=== PATIENT | female | born 1985 | race Caucasian/White ===

== ENCOUNTER 2019-02-24 04:13 | Emergency (ER) | payer MEDICARE, MEDICAID ==
[~2019-02-24] VITALS: Ht 170.2 cm; Wt 86.2 kg
--- NOTE | 2019-02-24 04:27 | ED Headache ---
General Chief Complaint: Head/Cervical Problems Stated Complaint: MIGRAINE Source: patient Exam Limitations: no limitations History of Present Illness Date Seen by Provider: Feb 24, 2019 Time Seen by Provider: 04:24 Initial Comments 33-year-old female presents with a migraine. Patient reports she has a history of migraines. She reports that she's been out of migraine for about a week. Patient is tried some Excedrin headache medication. Patient reports she's rec ently moved here and has no other migraine medication. Denies any fevers chills. Patient has some mild nausea. No other systemic complaints. Allergies and Home Medications Allergies Coded Allergies: divalproex sodium (Verified Allergy, Unknown, 02/24/19) fluoxetine (Verified Allergy, Unknown, 02/24/19) gabapentin (Verified Allergy, Unknown, 02/24/19) quetiapine (Verified Allergy, Unknown, 02/24/19) Patient Home Medication List Home Medication List Reviewed: Yes Review of Systems Review of Systems Constitutional: No chills, No fever Eyes: Denies Blurred Vision Ears, Nose, Mouth, Throat: no symptoms reported Respiratory: No cough, No short of breath Cardiovascular: No chest pain, No palpitations Gastrointestinal: nausea; No vomiting Genitourinary: no symptoms reported Skin: no symptoms reported Psychiatric/Neurological: No Symptoms Reported Past Jtrevjn-Skwymb-Xgrbxb Hx Past Med/Social Hx: Reviewed Nursing Past Med/Soc Hx Patient Social History Recent Foreign Travel: No Contact w/Someone Who Travel: No Physical Exam Vital Signs Capillary Refill : Height, Weight, BMI Height: '" Weight: lbs. oz. kg; BMI Method: General Appearance: WD/WN, no apparent distress HEENT: PERRL/EOMI Neck: non-tender, full range of motion, supple Cardiovascular: regular rate, rhythm, no edema Respiratory: normal breath sounds, no respiratory distress Gastrointestinal: non tender, soft Extremities: other (right lower extremity in a splint) Psychiatric: alert, oriented x 3 Crainal Nerves: normal speech, PERRL Skin: normal color, warm/dry Progress/Results/Core Measures Results/Orders My Orders Orders - WESLY WU DO Ketorolac Injection (Toradol Injection) (02/24/19 04:28) Diphenhydramine Injection (Benadryl Inje (02/24/19 04:28) Metoclopramide Injection (Reglan Injecti (02/24/19 04:28) Departure Impression Primary Impression: Migraine Qualified Codes: G43.909 - Migraine, unspecified, not intractable, without status migrainosus Disposition: 01 HOME, SELF-CARE Condition: Stable Departure-Patient Inst. Referrals: NO,LOCAL PHYSICIAN (PCP/Family) Primary Care Physician Patient Instructions: Migraine Headache (DC), Headache, Adult (DC) WESLY WU DO Feb 24, 2019 04:27
[2019-02-24] MEDS ORDERED: KETOROLAC 60 MG/2 ML VIAL IM STA (04:28)
[2019-02-24] MEDS ORDERED: diphenhydrAMINE 50 MG/ML INJ (BENADRYL) IM STA (04:28)
[2019-02-24] MEDS ORDERED: METOCLOPRAMIDE INJ 10 MG/2 ML (REGLAN) IM STA (04:28)
[2019-02-24 04:45] VITALS: BP 171/88
== END 2019-02-24 04:44 | disposition home or self-care (01) ==
LOC: ER FS 04:17
DX: G43.909 Migraine, unspecified, not intractable, without status migrainosus (principal); Z88.8 Allergy status to other drugs, medicaments and biological substances
CPT/HCPCS: 96372; 99284

== ENCOUNTER 2019-05-13 18:32 | Emergency (ER) | payer MEDICARE, MEDICAID ==
[~2019-05-13] VITALS: Ht 170 cm; Wt 95.3 kg
[2019-05-13] MEDS ORDERED: KETOROLAC 30 MG/ML VIAL IVP STA (18:47)
[2019-05-13] MEDS ORDERED: METOCLOPRAMIDE INJ 10 MG/2 ML (REGLAN) IVP STA (18:47)
[2019-05-13] MEDS ORDERED: ORPHENADRINE 60 MG/2 ML (NORFLEX) AMP IV STA (18:47)
[2019-05-13] MEDS ORDERED: NS IV 1000 ML 1,000 ML IV SCH (18:47)
--- NOTE | 2019-05-13 18:47 | ED Headache ---
General Chief Complaint: Head/Cervical Problems Stated Complaint: MIGRAINE Source: patient History of Present Illness Date Seen by Provider: May 13, 2019 Time Seen by Provider: 18:38 Initial Comments 33-year-old female presents with a headache. Patient reports that she's had a migraine for 4 days. It similar to her previous migraines that she's been having since she was 14. Her migraine is in her left eye and her left posterior neck. She has photophobia with noise her make it worse. She has some nausea but no other systemic complaints such as fever, chills. Allergies and Home Medications Allergies Coded Allergies: divalproex sodium (Verified Allergy, Unknown, 02/24/19) fluoxetine (Verified Allergy, Unknown, 02/24/19) gabapentin (Verified Allergy, Unknown, 02/24/19) quetiapine (Verified Allergy, Unknown, 02/24/19) Patient Home Medication List Home Medication List Reviewed: Yes Review of Systems Review of Systems Constitutional: No chills, No fever Eyes: Photophobia; Denies Vision Changes Ears, Nose, Mouth, Throat: denies ear pain, denies ear discharge Respiratory: No cough, No short of breath Cardiovascular: No chest pain, No palpitations Gastrointestinal: No nausea, No vomiting Genitourinary: no symptoms reported Musculoskeletal: No back pain, No joint swelling, No muscle weakness Skin: no symptoms reported Past Zvwpszy-Yuaqhj-Dkrkai Hx Past Med/Social Hx: Reviewed Nursing Past Med/Soc Hx Patient Social History Type Used: Cigarettes 2nd Hand Smoke Exposure: No Recent Foreign Travel: No Contact w/Someone Who Travel: No Recent Hopitalizations: No Seasonal Allergies Seasonal Allergies: No Physical Exam Vital Signs Vital Signs - First Documented 05/13/19 05/13/19 18:36 19:57 Temp 36.9 Pulse 106 Resp 16 B/P (MAP) 129/86 (100) Pulse Ox 99 O2 Delivery Room Air Capillary Refill : Height, Weight, BMI Height: 5'7.00" Weight: 190lbs. oz. 86.643310ac; BMI Method:Stated General Appearance: no apparent distress HEENT: PERRL/EOMI Neck: supple, tender lateral (left lateral) Cardiovascular: normal peripheral pulses, regular rate, rhythm Respiratory: chest non-tender, lungs clear, normal breath sounds Gastrointestinal: non tender, soft Back: no CVA tenderness Extremities: non-tender Psychiatric: alert, oriented x 3 Crainal Nerves: normal hearing, normal speech Coordination/Gait: normal gait Motor/Sensory: no motor deficit, no sensory deficit Skin: normal color, warm/dry Progress/Results/Core Measures Results/Orders My Orders Orders - WESLY WU DO Ed Iv/Invasive Line Start (05/13/19 18:47) Ns Iv 1000 Ml (Sodium Chloride 0.9%) (05/13/19 18:47) Ketorolac Injection (Toradol Injection) (05/13/19 18:47) Orphenadrine Injection (Norflex Injectio (05/13/19 18:47) Metoclopramide Injection (Reglan Injecti (05/13/19 18:47) Methylprednisolone Sod Succ (Solu-Medrol (05/13/19 19:00) Medications Given in ED Current Medications Medications Dose Ordered Sig/Arabella Route Start Time Stop Time Status Last Admin Dose Admin Methylprednisolone Sodium Succinate 80 mg ONCE ONCE IV 05/13/19 19:00 05/13/19 19:01 DC 05/13/19 19:01 80 MG Vital Signs/I&O 05/13/19 05/13/19 18:36 19:57 Temp 36.9 Pulse 106 80 Resp 16 16 B/P (MAP) 129/86 (100) 115/70 Pulse Ox 99 95 O2 Delivery Room Air Progress Progress Note : Time: 19:32 Progress Note Patient feeling seemingly better following treatment. She will be discharged home in stable condition Departure Impression Primary Impression: Migraine Qualified Codes: G43.919 - Migraine, unspecified, intractable, without status migrainosus Disposition: HOME, SELF-CARE Condition: Stable Departure-Patient Inst. Referrals: NO,LOCAL PHYSICIAN (PCP/Family) Primary Care Physician Patient Instructions: Migraine Headache (DC), Headache, Adult (DC) WESLY WU DO May 13, 2019 18:47 POS
[2019-05-13] MEDS ORDERED: methylPREDNISolone 40 MG/ML (Solu-MEDROL) VIAL IV ONE (19:00)
[2019-05-13 19:57] VITALS: BP 115/70
== END 2019-05-13 19:57 | disposition home or self-care (01) ==
LOC: EDUNIT# 18:32 → ER FS 18:34
DX: G43.909 Migraine, unspecified, not intractable, without status migrainosus (principal); Z88.8 Allergy status to other drugs, medicaments and biological substances
CPT/HCPCS: 96361; 96374; 96375

== ENCOUNTER 2019-06-16 14:53 | Emergency (ER) | payer MEDICARE, MEDICAID ==
[~2019-06-16] VITALS: Ht 170 cm; Wt 97.6 kg
[2019-06-16] MEDS ORDERED: NS IV 1000 ML 1,000 ML IV SCH (15:06)
--- NOTE | 2019-06-16 15:14 | ED Headache ---
General Chief Complaint: Head/Cervical Problems Stated Complaint: HEADACHE History of Present Illness Date Seen by Provider: Jun 16, 2019 Time Seen by Provider: 14:50 Initial Comments The patient is a 33-year-old female with a history of chronic migraine headaches on ibuprofen and Fioricet as needed at home, as well as tobacco abuse. She presents with concern for gradual onset right-sided frontal headache with radiation to the occiput with onset about 6 days prior to arrival and worsening gradually since then. Severity about 9 out of 10 at present per patient. Associated photophobia and phonophobia. Patient states symptoms, including laterality and character, feel exactly like prior migraine headaches which she has quite frequently, at least once a month. No associated fevers, vomiting, focal weakness, numbness, tingling, neck stiffness/pain/meningismus, vision changes, shortness of breath or chest pain, history of recent head trauma. Patient has tried her home medicines without complete relief of symptoms. She states the only thing different about this headache is that it has lasted a little longer than usual. Allergies and Home Medications Allergies Coded Allergies: divalproex sodium (Verified Allergy, Unknown, 02/24/19) fluoxetine (Verified Allergy, Unknown, 02/24/19) gabapentin (Verified Allergy, Unknown, 02/24/19) quetiapine (Verified Allergy, Unknown, 02/24/19) Patient Home Medication List Home Medication List Reviewed: Yes Review of Systems Review of Systems Constitutional: see HPI All Other Systems Reviewed Negative Unless Noted: Yes (Negative excepted noted.) Past Wmrrzad-Lbxpvo-Aoucjk Hx Past Med/Social Hx: Reviewed Nursing Past Med/Soc Hx Patient Social History Alcohol Use: Denies Use Recreational Drug Use: No Smoking Status: Current Everyday Smoker Type Used: Cigarettes 2nd Hand Smoke Exposure: Yes Recent Hopitalizations: No Physical Abuse: No Sexual Abuse: No Mistreated: No Fear: No Seasonal Allergies Seasonal Allergies: No Past Medical History Surgeries: Yes Section, Gallbladder Respiratory: No Cardiac: No Neurological: Yes Headaches /Migraines Genitourinary: No Gastrointestinal: No Musculoskeletal: No Endocrine: Yes Hypothyroidsim HEENT: No Cancer: No Psychosocial: No Integumentary: No Family Medical History Reviewed Nursing Family Hx Physical Exam Vital Signs Vital Signs - First Documented 06/16/19 15:02 Temp 36.7 Pulse 96 Resp 16 B/P (MAP) 142/86 (104) Pulse Ox 99 Capillary Refill : Height, Weight, BMI Height: 5'7.00" Weight: 190lbs. oz. 86.894389ir; 32.00 BMI Method:Stated General Appearance: no apparent distress Comments This is a younger female appearing nontoxic and in no acute distress. Head is normocephalic and atraumatic. Neck is supple and nontender and there is no meningismus/rigidity appreciated and the patient is able to range her neck fully in all dimensions without discomfort. Oropharynx is moist. Lungs clear to auscultation at all stations. There is a normal S1 and S2 without rubs or gallops and capillary refill is appropriate, less than 2 seconds globally. Abdomen is soft, nontender and nondistended. Skin is warm and dry without cyanosis, clubbing or edema. Psychiatrically, the patient demonstrates appropriate mood and affect and is alert. Neurologically, cranial nerves II through XII are intact and there are no lateralizing deficits noted. Speech is normal. Language is normal. Coordination is normal. There is no dysmetria with smglue-hl-fsgb bilaterally. Strength is 5 out of 5 in all joints of bilateral upper and lower extremity. Sensation is intact to light touch in bilateral upper and lower extremities. The patient ambulates with a narrow, steady gait in the e mergency department. She is alert and oriented 4. Progress/Results/Core Measures Results/Orders My Orders Orders - YUDITH LEE MD Prochlorperazine Injection (Compazine In (06/16/19 15:15) Diphenhydramine Injection (Benadryl Inje (06/16/19 15:15) Ketorolac Injection (Toradol Injection) (06/16/19 15:15) Sumatriptan Injection (Imitrex Injection (06/16/19 15:15) Ed Iv/Invasive Line Start (06/16/19 15:06) Ns Iv 1000 Ml (Sodium Chloride 0.9%) (06/16/19 15:06) Magnesium 1 Gm/100 Ml Ivpb (Magnesium Valle (06/16/19 15:56) Magnesium 1 Gm/100 Ml Ivpb (Magnesium Valle (06/16/19 16:15) Medications Given in ED Current Medications Medications Dose Ordered Sig/Arabella Route Start Time Stop Time Status Last Admin Dose Admin Diphenhydramine HCl 25 mg ONCE ONCE IVP 06/16/19 15:15 06/16/19 15:16 DC 06/16/19 15:14 25 MG Ketorolac Tromethamine 30 mg ONCE ONCE IVP 06/16/19 15:15 06/16/19 15:16 DC 06/16/19 15:14 30 MG Prochlorperazine Edisylate 10 mg ONCE ONCE IV 06/16/19 15:15 06/16/19 15:16 DC 06/16/19 15:14 10 MG Sumatriptan Succinate 6 mg ONCE ONCE SQ 06/16/19 15:15 06/16/19 15:16 DC 06/16/19 15:18 6 MG Vital Signs/I&O 06/16/19 15:02 Temp 36.7 Pulse 96 Resp 16 B/P (MAP) 142/86 (104) Pulse Ox 99 Progress Progress Note : Time: 15:13 Progress Note Vital signs and clinical examination reassuring and neurologic examination is nonfocal today. 33-year-old female with gradual onset right-sided headache with associated photophobia and phonophobia, consistent with her frequent migraine headaches, but has lasted longer than usual. No red flags for headache today. We'll treat symptomatically as per nursing flow sheet with medications and IV fluids and will then reevaluate. If the patient feels better, plan will be for discharge home to follow up very closely with primary care in the next 1-2 days. I have also counseled the patient that she may benefit from a referral to neurology for further evaluation and treatment of her chronic headaches. She understands and agrees. Update 1700: Headache essentially resolved upon reassessment. Patient feels much, much better and would like to go home. We will proceed with discharge home at this time. We'll prescribe some Imitrex which the patient may try for discomfort not controlled with home ibuprofen or her other medications. She is to follow-up with primary care as above in the next 1-2 days and to return to the emergency department right away if symptoms worsen or if other new symptoms of concern develop. All questions are answered. Departure Impression Primary Impression: Headache Qualified Codes: G44.89 - Other headache syndrome Disposition: 01 HOME, SELF-CARE Condition: Improved Departure-Patient Inst. Referrals: NO,LOCAL PHYSICIAN (PCP) Primary Care Physician Patient Instructions: Headache, Adult (DC) Add. Discharge Instructions: Follow up very closely with your primary care physician in the next 1-2 days. We are prescribing some medication you may try for recurrent headache not responsive to your typical ibuprofen at home. Use as instructed. Follow up very closely with your primary care physician in the next 1-2 days. Given your difficulty with frequent migraine headaches, you may also benefit from a referral to the neurologist. Make sure to discuss this with your primary care physician at your close follow-up appointment. Return to the emergency department right away with worsened symptoms or other new concerns. Scripts Sumatriptan Succinate (Imitrex) 50 Mg Tab 50 MG PO Q2H PRN for headache MDD 100mg, #10 TAB Prov: YUDITH LEE MD 06/16/19 YUDITH LEE MD Jun 16, 2019 15:14
[2019-06-16] MEDS ORDERED: KETOROLAC 30 MG/ML VIAL IVP ONE (15:15)
[2019-06-16] MEDS ORDERED: diphenhydrAMINE 50 MG/ML INJ (BENADRYL) IVP ONE (15:15)
[2019-06-16] MEDS ORDERED: SUMAtriptan 6 MG/0.5 ML (IMITREX) INJ SQ ONE (15:15)
[2019-06-16] MEDS ORDERED: PROCHLORPERAZINE 10 MG/2ML INJ (COMPAZINE) IV ONE (15:15)
[2019-06-16] MEDS ORDERED: MAGNESIUM 1 GM/100 ML IVPB 100 ML IV STA (15:56)
[2019-06-16] MEDS: MAGNESIUM 1 GM/100 ML IVPB 100 ML IV SCH ×2 (16:07→16:37)
[2019-06-16 17:00] VITALS: BP 135/83
[2019-06-16] MEDS ORDERED: SMTR50T PO (17:05)
== END 2019-06-16 17:07 | disposition home or self-care (01) ==
LOC: EDUNIT# 14:53 → ER FS 14:54
DX: R51 Headache (principal); E03.9 Hypothyroidism, unspecified; F17.210 Nicotine dependence, cigarettes, uncomplicated; Z86.69 Personal history of other diseases of the nervous system and sense organs; Z88.8 Allergy status to other drugs, medicaments and biological substances
CPT/HCPCS: 96361; 96365; 96372; 96375

== ENCOUNTER 2019-12-14 15:14 | Emergency (ER) | payer MEDICARE, MEDICAID ==
[~2019-12-14] VITALS: Ht 170 cm; Wt 107.8 kg
[~2019-12-14 15:14] MED LIST: SMTR50T PO
[2019-12-14] MEDS ORDERED: TRAM50TA3 (15:25)
[2019-12-14] MEDS ORDERED: THYR60TA2 (15:25)
[2019-12-14] MEDS ORDERED: MONT10TA26 (15:25)
[2019-12-14] MEDS ORDERED: BUPR100T8 (15:25)
[2019-12-14] MEDS ORDERED: BUTA1TAB9 (15:25)
[2019-12-14] MEDS ORDERED: IBUP-1780 (15:25)
[2019-12-14] MEDS ORDERED: CYCL10TA9 (15:25)
--- OUTSIDE RECORDS SUMMARY | 2019-12-14 15:28 | XMS REPORT | Continuity of Care Document ---
Author Organization Unknown Address Unknown Phone Unavailable Allergies Active Description Code Type Severity Reaction Onset Reported/Identified Relationship to Patient Clinical Status Yes divalproex sodium [id number] Drug Allergy Unknown N/A 02/24/2019 Yes fluoxetine [id number] Drug Allerg y Unknown N/A 02/24/2019 Yes gabapentin [id number] Drug Allerg y Unknown N/A 02/24/2019 Yes quetiapine [id number] Drug Allerg y Unknown N/A 02/24/2019 Medications There is no data. Problems Date Dx Coded Attending Type Code Diagnosis Diagnosed By 02/24/2019 WU DO WESLY L Ot G43.9 09 MIGRAINE, UNSP, NOT INTRACTABLE, WITHOUT 02/24/2019 WU DO, WESLY L Ot Z88.8 ALLERGY STATUS TO OTH DRUG/MEDS/BIOL SUB 02/28/2019 WU DO, WESLY L Ot G43.9 09 MIGRAINE, UNSP, NOT INTRACTABLE, WITHOUT 02/28/2019 WU DO, WESLY L Ot Z88.8 ALLERGY STATUS TO OTH DRUG/MEDS/BIOL SUB 05/13/2019 WU DO, WESLY L Ot G43.9 09 MIGRAINE, UNSP, NOT INTRACTABLE, WITHOUT 05/13/2019 WU DO, WESLY L Ot R51 HEADACHE 05/13/2019 WU DO WESLY L Ot Z88.8 ALLERGY STATUS TO OTH DRUG/MEDS/BIOL SUB 06/16/2019 YUDITH LEE MD Ot E03. 9 HYPOTHYROIDISM, UNSPECIFIED 06/16/2019 YUDITH LEE MD Ot F17.210 NICOTINE DEPENDENCE, CIGARETTES, UNCOMPL 06/16/2019 YUDITH LEE MD Ot R51 HEADACHE 06/16/2019 YUDITH LEE MD Ot Z86. 69 PERSONAL HISTORY OF DIS OF THE NERVOUS S 06/16/2019 YUDITH LEE MD Ot Z88. 8 ALLERGY STATUS TO OTH DRUG/MEDS/BIOL SUB Procedures There is no data. Results There is no data. Encounters ACCT No. Visit Date/Time Discharge Status Pt. Type Provider Facility Loc./Unit Complaint [id number] 06/16/2019 14:54:00 17:07:00 DIS Emergency JESUS EVANS, YUDITH Dixon [facility] ER FS HEADACHE [id number] 05/13/2019 18:34:00 19:57:00 DIS Emergency WU DO WESLY L [facility] ER FS MIGRAINE [id number] 02/24/2019 04:17:00 04:44:00 DIS Emergency WU , WESLY L [facility] ER FS MIGRAINE
[2019-12-14] MEDS ORDERED: NS IV 1000 ML 1,000 ML IV SCH (15:30)
[2019-12-14] MEDS ORDERED: SUMAtriptan 6 MG/0.5 ML (IMITREX) INJ SQ ONE (15:30)
[2019-12-14] MEDS ORDERED: KETOROLAC 30 MG/ML VIAL IVP ONE (15:30)
[2019-12-14] MEDS ORDERED: PROCHLORPERAZINE 10 MG/2ML INJ (COMPAZINE) IV ONE (15:30)
[2019-12-14] MEDS ORDERED: diphenhydrAMINE 50 MG/ML INJ (BENADRYL) IVP ONE (15:30)
--- NOTE | 2019-12-14 15:32 | ED Headache ---
General Chief Complaint: Head/Cervical Problems Stated Complaint: HEADACHE Nursing Triage Note: Has a migraine that started 5 days ago. States it is currently rated at 8/10. Has taken fioricet and ibuprofen for pain. States she has migraines frequently. Nursing Sepsis Screen: No Definite Risk Source: patient Exam Limitations: no limitations History of Present Illness Date Seen by Provider: Dec 14, 2019 Time Seen by Provider: 15:20 Initial Comments The patient is a pleasant 34-year-old female who presents for evaluation of a headache which she states started 5 days ago. She says it is a 8 out of 10 and is throbbing in nature in the bilateral temples. She is taken Fioricet and ibuprofen for the pain with little relief. She states that she gets frequent migraines and that this is identical to her typical migraines. She denies any recent head injury, neck pain or stiffness, fevers or chills, vomiting, vision changes, focal weakness or numbness, confusion, or difficulty speaking. She is alert and oriented 4, calm, and appears to be in no distress. She reports sensitivity to light and sound. Timing/Duration: other (about 5 days) Severity/Quality: moderate Location: temporal Prior Headaches/Recent Trauma: frequent headaches, chronic headaches Modifying Factors: improves with exposure to light (next worse) Associated Symptoms: denies symptoms Allergies and Home Medications Allergies Coded Allergies: divalproex sodium (Verified Allergy, Unknown, 02/24/19) fluoxetine (Verified Allergy, Unknown, 02/24/19) gabapentin (Verified Allergy, Unknown, 02/24/19) quetiapine (Verified Allergy, Unknown, 02/24/19) Home Medications Sumatriptan Succinate 50 Mg Tab, 50 MG PO Q2H PRN for headache Prescribed by: YUDITH LEE on 06/16/19 4715 Patient Home Medication List Home Medication List Reviewed: Yes Review of Systems Review of Systems Constitutional: no symptoms reported Eyes: No Symptoms Reported Ears, Nose, Mouth, Throat: no symptoms reported Respiratory: no symptoms reported Cardiovascular: no symptoms reported Gastrointestinal: no symptoms reported Genitourinary: no symptoms reported Musculoskeletal: no symptoms reported Skin: no symptoms reported Psychiatric/Neurological: Headache All Other Systems Reviewed Negative Unless Noted: Yes Past Mbykgku-Kljjxu-Oanlhp Hx Past Med/Social Hx: Reviewed Nursing Past Med/Soc Hx Patient Social History Alcohol Use: Denies Use Recreational Drug Use: No Smoking Status: Current Everyday Smoker Type Used: Cigarettes 2nd Hand Smoke Exposure: Yes Recent Foreign Travel: No Contact w/Someone Who Travel: No Recent Infectious Disease Expo: No Recent Hopitalizations: No Seasonal Allergies Seasonal Allergies: No Past Medical History Surgeries: Yes Section, Gallbladder Respiratory: No Cardiac: No Neurological: Yes Headaches /Migraines Genitourinary: No Gastrointestinal: Yes Gastroesophageal Reflux Musculoskeletal: No Endocrine: Yes Hypothyroidsim HEENT: No Cancer: No Psychosocial: No Integumentary: No Physical Exam Vital Signs Vital Signs - First Documented 12/14/19 15:20 Temp 36.9 Pulse 77 Resp 18 B/P (MAP) 118/72 (87) Pulse Ox 100 Capillary Refill : Less Than 3 Seconds Height, Weight, BMI Height: 5'7.00" Weight: 190lbs. oz. 86.422532qo; 37.00 BMI Method:Stated General Appearance: WD/WN, no apparent distress HEENT: PERRL/EOMI, pharynx normal Neck: non-tender, full range of motion, supple, normal inspection Cardiovascular: regular rate, rhythm, no edema, no JVD Respiratory: lungs clear, normal breath sounds, no respiratory distress, no accessory muscle use Extremities: non-tender, normal inspection Psychiatric: alert, oriented x 3 Crainal Nerves: normal hearing, normal speech, PERRL Coordination/Gait: normal gait Motor/Sensory: no motor deficit, no sensory deficit, no pronator drift Skin: normal color, warm/dry Progress/Results/Core Measures Results/Orders My Orders Orders - OLVIN DÍAZ DO Diphenhydramine Injection (Benadryl Inje (12/14/19 15:30) Ketorolac Injection (Toradol Injection) (12/14/19 15:30) Prochlorperazine Injection (Compazine In (12/14/19 15:30) Sumatriptan Injection (Imitrex Injection (12/14/19 15:30) Ns Iv 1000 Ml (Sodium Chloride 0.9%) (12/14/19 15:30) Medications Given in ED Current Medications Medications Dose Ordered Sig/Arabella Route Start Time Stop Time Status Last Admin Dose Admin Diphenhydramine HCl 25 mg ONCE ONCE IVP 12/14/19 15:30 12/14/19 15:31 DC 12/14/19 15:43 25 MG Ketorolac Tromethamine 30 mg ONCE ONCE IVP 12/14/19 15:30 12/14/19 15:31 DC 12/14/19 15:44 30 MG Prochlorperazine Edisylate 10 mg ONCE ONCE IV 12/14/19 15:30 12/14/19 15:31 DC 12/14/19 15:43 10 MG Sumatriptan Succinate 6 mg ONCE ONCE SQ 12/14/19 15:30 12/14/19 15:31 DC 12/14/19 15:44 6 MG Vital Signs/I&O 12/14/19 15:20 Temp 36.9 Pulse 77 Resp 18 B/P (MAP) 118/72 (87) Pulse Ox 100 Blood Pressure Mean: 87 Progress Progress Note : Progress Note @1625 - The patient reports she is feeling much better and is asking to be discharged home. Advised the patient to follow up with her PCP within the next 1-2 days and to return to the emergency Department immediately for new or worsening symptoms. The patient expresses verbal understanding and agreement with the plan and is stable for discharge. Departure Impression Primary Impression: Migraine Disposition: 01 HOME, SELF-CARE Condition: Stable Departure-Patient Inst. Decision time for Depature: 16:25 Referrals: [facility] Patient Instructions: Migraine Headache (DC) Add. Discharge Instructions: Drink plenty of fluids. Follow-up with your doctor in the next 2-3 days. Return to the Emergency Department immediately for new or worsening symptoms. OLVIN DÍAZ DO Dec 14, 2019 15:32
[2019-12-14 16:38] VITALS: BP 120/74
== END 2019-12-14 16:33 | disposition home or self-care (01) ==
LOC: EDUNIT# 15:14 → ER FS 15:15
DX: G43.909 Migraine, unspecified, not intractable, without status migrainosus (principal); F17.210 Nicotine dependence, cigarettes, uncomplicated; Z88.8 Allergy status to other drugs, medicaments and biological substances
CPT/HCPCS: 99282

== ENCOUNTER → 2020-05-07 | Outpatient (CLI) | payer MEDICARE, MEDICAID ==
[~2020-05-07] MED LIST changes: +BUPR100T8; +BUTA1TAB9; +CYCL10TA9; +IBUP-1780; +MONT10TA26; +THYR60TA2; +TRAM50TA3
--- NOTE | 2020-05-07 11:57 | Diagnostic Imaging Report ---
Indication: Chronic low back pain There appears to be an old compression fracture of the superior endplate of L1. T12-L1 disc space is slightly narrowed. Other intervertebral disc spaces are normal. Vertebral body height and alignment is normal other than L1. IMPRESSION: Degenerative disc changes T12-L1 with old compression fractures superior end plate of L1. There are no acute abnormalities. Dictated by: Dictated on workstation # [id number]
== END ==
LOC: RAD FS 11:06
PROVIDERS: ATTEND Anesthesiology Pain Medicine
DX: M47.815 Spondylosis without myelopathy or radiculopathy, thoracolumbar region (principal); Z87.81 Personal history of (healed) traumatic fracture
CPT/HCPCS: 72110

== ENCOUNTER → 2020-06-11 | Outpatient (CLI) | payer MEDICARE, MEDICAID ==
[~2020-06-11] MED LIST changes: -MONT10TA26; +MONT10TA97
--- NOTE | 2020-06-11 09:14 | Diagnostic Imaging Report ---
PROCEDURE: MRI lumbar spine. TECHNIQUE: Multiplanar, multisequence MRI of the lumbar spine was performed without contrast. INDICATION: Low back pain. No prior studies are available for comparison. FINDINGS: Curvature and alignment of the lumbar spine is normal. Vertebral body heights are maintained. No acute compression fracture or geographic marrow lesion is seen. There is some degenerative disc disease with disc dessication L4-L5 and L5-S1 levels. The conus is unremarkable at the L1 level. T12-L1: Central canal and neural foramina are widely patent. L1-T2: No central canal or neural foraminal narrowing is seen. L2-L3: There are hypertrophic facet changes with ligamentous thickening noted. Central canal remains patent. There is some mild narrowing of the neural foramina on the right due to right posterolateral broad-based disc bulging. L3-L4: Hypertrophic facet changes and ligamentous thickening are noted. Central canal remains patent. There is mild narrowing of the neural foramina bilaterally due to posterolateral disc bulging. L4-L5: Ligamentous thickening and facet changes are noted. There is broad-based disc/osteophyte complex indenting the ventral thecal sac producing moderate trefoil stenosis of the canal. There is also significant narrowing of the lateral recesses bilaterally as well as moderate bilateral neural foraminal stenosis. L5-S1: Broad-based disc bulging in the midline/left para-midline location does produce significant narrowing of the lateral recesses bilaterally particularly on the left. There is narrowing of the central canal is well. No significant neural foraminal narrowing is detected. Paraspinous tissues are unremarkable. IMPRESSION: Multilevel lumbar spondylosis with multilevel central canal, lateral recess and neural foraminal narrowing described below by level above. Dictated by: Dictated on workstation # [id number]
== END ==
LOC: RAD 08:00
PROVIDERS: ATTEND Pediatrics
DX: M51.26 Other intervertebral disc displacement, lumbar region (principal); M51.27 Other intervertebral disc displacement, lumbosacral region; M48.061 Spinal stenosis, lumbar region without neurogenic claudication; M48.07 Spinal stenosis, lumbosacral region; R76.8 Other specified abnormal immunological findings in serum
CPT/HCPCS: 72148

== ENCOUNTER 2020-07-12 17:01 | Emergency (ER) | payer MEDICARE, MEDICAID ==
[~2020-07-12] VITALS: Ht 170.2 cm; Wt 99.0 kg
[2020-07-12] MEDS ORDERED: diphenhydrAMINE 50 MG/ML INJ (BENADRYL) IVP ONE (18:00)
[2020-07-12] MEDS ORDERED: METOCLOPRAMIDE INJ 10 MG/2 ML (REGLAN) IVP ONE (18:00)
[2020-07-12] MEDS ORDERED: NS IV 1000 ML 1,000 ML IV SCH (18:00)
--- NOTE | 2020-07-12 18:08 | ED General ---
General Chief Complaint: Head/Cervical Problems Stated Complaint: HEADACHE Nursing Triage Note: Patient reports a migraine headache for 6 days, states she has a history of migraine headaches. States she took fioricet and ibprofen at home without relief. Nursing Sepsis Screen: No Definite Risk History of Present Illness Date Seen by Provider: Jul 12, 2020 Time Seen by Provider: 17:30 Initial Comments Patient is a 34-year-old female with history of chronic migraines who presents with typical migraine headache starting 6 days ago. Headache is left retro- orbital described as dull throbbing and associated with light and sound sensitivity. Symptom is moderate to severe. Patient reports fatigue insomnia and and fatigue. This is not the worst headache of the patient's life. No neck pain stiffness rigidity, fever or rash. No extremity weakness or loss of sensation. No family history of subarachnoid hemorrhage. No other acute symptoms or complaints Timing/Duration: 4-6 Hours Severity: Mild Modifying Factors: improves with Other Associated Systoms: Denies Symptoms Allergies and Home Medications Allergies Coded Allergies: divalproex sodium (Verified Allergy, Unknown, 02/24/19) fluoxetine (Verified Allergy, Unknown, 02/24/19) gabapentin (Verified Allergy, Unknown, 02/24/19) quetiapine (Verified Allergy, Unknown, 02/24/19) Home Medications Sumatriptan Succinate 50 Mg Tab, 50 MG PO Q2H PRN for headache Prescribed by: YUDITH LEE on 06/16/19 1706 Patient Home Medication List Home Medication List Reviewed: Yes Review of Systems Review of Systems Constitutional: see HPI EENTM: see HPI Respiratory: see HPI Cardiovascular: see HPI Gastrointestinal: see HPI Genitourinary: see HPI : Yes Musculoskeletal: see HPI Skin: see HPI Psychiatric/Neurological: See HPI Hematologic/Lymphatic: See HPI Immunological/Allergic: see HPI All Other Systems Reviewed Negative Unless Noted: Yes Past Gkdgoiz-Lorspz-Gilmjw Hx Past Med/Social Hx: Reviewed Nursing Past Med/Soc Hx Patient Social History Alcohol Use: Denies Use Smoking Status: Current Everyday Smoker Type Used: Cigarettes 2nd Hand Smoke Exposure: Yes Recent Infectious Disease Expo: No Recent Hopitalizations: No Seasonal Allergies Seasonal Allergies: No Past Medical History Surgeries: Yes Section, Gallbladder Respiratory: No Cardiac: No Neurological: Yes Headaches /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 oz. 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 Norm as Tested Skin: Normal Color Focused Exam Sepsis Stage: Ruled Out Progress/Results/Core Measures Suspected Sepsis Recent Fever Within 48 Hours: No Infection Criteria Present: None New/Unexplained Altered Menta: No Sepsis Screen: No Definite Risk SIRS Temperature: Pulse: 82 Respiratory Rate: 18 Blood Pressure 138 /83 Mean: 101 Results/Orders My Orders Orders - ISMAEL LOMBARDI DO Metoclopramide Injection (Reglan Injecti (07/12/20 18:00) Diphenhydramine Injection (Benadryl Inje (07/12/20 18:00) Dexamethasone Injection (Decadron Injec (07/12/20 18:00) Ns Iv 1000 Ml (Sodium Chloride 0.9%) (07/12/20 18:00) Ed Iv/Invasive Line Start (07/12/20 18:04) Medications Given in ED Current Medications Medications Dose Ordered Sig/Arabella Route Start Time Stop Time Status Last Admin Dose Admin Dexamethasone Sodium Phosphate 4 mg ONCE ONCE IV 07/12/20 18:00 07/12/20 18:03 DC 07/12/20 18:13 4 MG Diphenhydramine HCl 50 mg ONCE ONCE IVP 07/12/20 18:00 07/12/20 18:03 DC 07/12/20 18:13 50 MG Metoclopramide HCl 10 mg ONCE ONCE IVP 07/12/20 18:00 07/12/20 18:03 DC 07/12/20 18:13 10 MG Vital Signs/I&O 07/12/20 17:03 Temp 36.6 Pulse 82 Resp 18 B/P (MAP) 138/83 (101) Pulse Ox 99 O2 Delivery Room Air Capillary Refill : Less Than 3 Seconds Blood Pressure Mean: 101 Departure Communication (Admissions) Typical migraine-like headache. Symptoms fully resolved with treatment in the emergency department. Recommend home rest and supportive care PCP follow-up. Return precautions reviewed. Patient verbalizes understanding agreement discharge instructions prior to departure. Impression Primary Impression: Migraine Disposition: HOME, SELF-CARE Condition: Stable Departure-Patient Inst. Referrals: KEVIN CRUZ APRN (PCP) Primary Care Physician [facility] (Family) Primary Care Physician Patient Instructions: Migraines (DC) Add. Discharge Instructions: Please go home and rest and take Excedrin Migraine and Compazine as needed for recurrent headache. Follow-up with your PCP for further evaluation. Return to the ED if new or worsening symptoms. All discharge instructions reviewed with patient and/or family. Voiced understanding. Scripts Prochlorperazine Maleate (Compazine) 10 Mg Tablet 10 MG PO q 8, #10 TAB Prov: ISMAEL LOMBARDI DO 07/12/20 ISMAEL LOMBARDI DO Jul 12, 2020 18:08
[2020-07-12] MEDS ORDERED: PROC-1 PO (18:47)
[2020-07-12 18:52] VITALS: BP 130/78
== END 2020-07-12 18:55 | disposition home or self-care (01) ==
LOC: EDUNIT# 17:01 → ER FS 17:03
DX: G43.909 Migraine, unspecified, not intractable, without status migrainosus (principal); F41.9 Anxiety disorder, unspecified; F17.210 Nicotine dependence, cigarettes, uncomplicated; Z88.8 Allergy status to other drugs, medicaments and biological substances

== ENCOUNTER 2020-11-28 15:22 | Emergency (ER) | payer MEDICARE, MEDICAID ==
[~2020-11-28] VITALS: Ht 170.2 cm; Wt 92.3 kg
[~2020-11-28 15:22] MED LIST changes: +BUTA-235; -BUTA1TAB9; +MONT10TA32; -MONT10TA97; +PROC-1 PO
[2020-11-28 15:36] VITALS: BP 121/89
[2020-11-28] MEDS ORDERED: ORPHENADRINE 60 MG/2 ML (NORFLEX) AMP (ED ONLY) IVP STA (16:10)
[2020-11-28] MEDS ORDERED: morphine INJ 10 MG/ML 1ML (SYR OR VIAL) IVP STA (16:10)
[2020-11-28] MEDS ORDERED: ACHD5005 PO (16:26)
[2020-11-28] MEDS ORDERED: PRD20T PO (16:26)
[2020-11-28] MEDS ORDERED: BACL10TA PO (16:26)
--- NOTE | 2020-11-28 16:27 | ED Back Pain ---
General Chief Complaint: Lower Extremity Stated Complaint: LEFT LEG PAIN Nursing Triage Note: Patient reports she was carrying a case of water two days ago and twisted her left leg. She reports continued pain from her left buttock to her left calf, states she has been taking ibuprofen at home without relief. Nursing Sepsis Screen: No Definite Risk Source of Information: Patient History of Present Illness Date Seen by Provider: Nov 28, 2020 Time Seen by Provider: 15:29 Initial Comments 35-year-old female presenting with complaints of low back pain and pain radia ting down her left leg from her hip. She has had this previously not recently. 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 She was carrying some water and twisted On Monday of this week. When she did that she had some pain in her low back and pain radiating down the left leg. She had no direct trauma to the low back or hip. She denies any fall or injury. She has been trying usqx-eza-xbtdati medicine as well as dydo-yuv-rjeghxf remedies without improvement. She denies any loss of bowel or bladder control. She denies any numbness or tingling but does have sharp shooting pains going down the back of her left leg. Location: Lumbar Spine Timing/Duration: 3-4 Days Severity: Severe Pain/Injury Location: Back Radiation: Lower Legs (Down the back of the left leg) Method of Injury: Other (Twisted while carrying a case of water) Associated Symptoms: muscle spasms; No fever, No weakness, No numbness in legs/feet, No tingling in legs/feet, No sensory/motor loss; lower back pain; No loss of bladder control, No loss of bowel control Allergies and Home Medications Allergies Coded Allergies: celecoxib (Verified Allergy, Unknown, 11/28/20) divalproex sodium (Verified Allergy, Unknown, 02/24/19) fluoxetine (Verified Allergy, Unknown, 02/24/19) gabapentin (Verified Allergy, Unknown, 02/24/19) pregabalin (Verified Allergy, Unknown, 11/28/20) quetiapine (Verified Allergy, Unknown, 02/24/19) Home Medications Baclofen 10 Mg Tablet, 10 MG PO TID PRN for MUSCLE SPASMS Prescribed by: JOE ACOSTA on 11/28/20 5236 Hydrocodone/Acetaminophen 1 Each Tablet, 1 TAB PO Q4H PRN for PAIN-SEVERE (8-10) Prescribed by: JOE ACOSTA on 11/28/20 1627 Prednisone 20 Mg Tab, 40 MG PO DAILY Prescribed by: JOE ACOSTA on 11/28/20 1626 Prochlorperazine Maleate 10 Mg Tablet, 10 MG PO q 8 Prescribed by: ISMAEL LOMBARDI on 07/12/20 1847 Sumatriptan Succinate 50 Mg Tab, 50 MG PO Q2H PRN for headache Prescribed by: YUDITH LEE on 06/16/19 1705 Patient Home Medication List Home Medication List Reviewed: Yes Review of Systems Constitutional: No chills, No fever EENTM: no symptoms reported Respiratory: no symptoms reported Cardiovascular: no symptoms reported Gastrointestinal: no symptoms reported Genitourinary: no symptoms reported Musculoskeletal: see HPI Skin: No change in color Psychiatric/Neurological: Denies Numbness, Denies Paresthesia Past Lkrcxca-Wxbwqw-Hubdba Hx Past Med/Social Hx: Reviewed Nursing Past Med/Soc Hx Patient Social History Alcohol Use: Denies Use Smoking Status: Current Everyday Smoker Type Used: Cigarettes 2nd Hand Smoke Exposure: Yes Recent Infectious Disease Expo: No Recent Hopitalizations: No Seasonal Allergies Seasonal Allergies: No Past Medical History Surgeries: Yes Section, Gallbladder Respiratory: No Cardiac: No Neurological: Yes 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 oz. 86.788897pj; 31.00 BMI Method:Stated General Appearance: WD/WN, Mild Distress HEENT: PERRL/EOMI, Pharynx Normal Neck: Full Range of Motion, Normal Inspection, Non Tender, Supple Cardiovascular: Regular Rate, Rhythm, Normal Peripheral Pulses Respiratory: Chest Non Tender, Lungs Clear, Normal Breath Sounds Peripheral Pulses: 2+ Dorsalis Pedis (R), 2+ Left Dors-Pedis (L), 2+ Radial Pulses (R), 2+ Radial Pulses (L) Back: No CVA Tenderness, Muscle Spasm (Left paraspinal muscles in the lumbar region and SI joint region.), Other (Pain over the SI joint and pain with straight leg raise on the left side) Extremity: Normal Capillary Refill, Normal Inspection, Normal Range of Motion, Non Tender, No Pedal Edema Neurologic/Psychiatric: Alert, Oriented x3, No Motor/Sensory Deficits, Normal Mood/Affect, box maker II-XII Norm as Tested Skin: Normal Color, Warm/Dry Progress/Results/Core Measures Results/Orders My Orders Orders - JOE ACOSTA MD Ed Iv/Invasive Line Start (11/28/20 16:10) Orphenadrine Inj (Ed Only) (Norflex Inje (11/28/20 16:10) Dexamethasone Injection (Decadron Inje (11/28/20 16:10) Morphine Injection (Morphine Injection (11/28/20 16:10) Vital Signs/I&O 11/28/20 15:36 Temp 36.6 Pulse 92 Resp 16 B/P (MAP) 121/89 (100) Pulse Ox 98 O2 Delivery Room Air Blood Pressure Mean: 100 Progress Progress Note : Progress Note Discussed with patient that she had no direct trauma to her back this seems more musculoskeletal with muscle strain. Will try treating medication and have her follow-up through the clinic. If she starts having decreased ability to hold her urine or stool be seen regularly. Ordered pain medicine as well as muscle relaxer and steroid. And continue by mouth for home. Departure Impression Primary Impression: Low back pain with left-sided sciatica Qualified Codes: M54.42 - Lumbago with sciatica, left side Disposition: 01 HOME, SELF-CARE Condition: Stable Departure-Patient Inst. Decision time for Depature: 16:27 Referrals: KEVIN CRUZ APRN (PCP) Primary Care Physician [facility] (Family) Primary Care Physician Patient Instructions: Sciatica ED, Low Back Pain ED Add. Discharge Instructions: Alternate ice and heat to your back to help with inflammation. Take the medicine to help with pain and muscle spasms and inflammatioin. Check with clinic if not improving and seek medical care immediately if you have worsening symptoms with loss of control of your bladder or stool All discharge instructions reviewed with patient and/or family. Voiced understan sal. Scripts Baclofen (Baclofen) 10 Mg Tablet 10 MG PO TID PRN for MUSCLE SPASMS for 10 Days, #30 TAB 0 Refills Prov: JOE ACOSTA MD 11/28/20 Prednisone (Prednisone) 20 Mg Tab 40 MG PO DAILY for 5 Days, #10 TAB 0 Refills Prov: JOE ACOSTA MD 11/28/20 Hydrocodone/Acetaminophen (Hydrocodone-Acetamin 5-325 mg) 1 Each Tablet 1 TAB PO Q4H PRN for PAIN-SEVERE (8-10) for 5 Days, #30 TAB 0 Refills Prov: JOE ACOSTA MD 11/28/20 JOE ACOSTA MD Nov 28, 2020 16:27
== END 2020-11-28 16:29 | disposition home or self-care (01) ==
LOC: EDUNIT# 15:22 → ER FS 15:24
DX: M54.42 Lumbago with sciatica, left side (principal); G43.909 Migraine, unspecified, not intractable, without status migrainosus; F17.210 Nicotine dependence, cigarettes, uncomplicated; Z79.899 Other long term (current) drug therapy

== ENCOUNTER 2021-11-23 12:46 | Emergency (ER) | payer MEDICARE, MEDICAID ==
[~2021-11-23] VITALS: Ht 170.2 cm; Wt 84.0 kg
[~2021-11-23 12:46] MED LIST changes: +ACHD5005 PO; +BACL10TA PO; +BUPR-104; -BUPR100T8; +CYCL10TA25; -CYCL10TA9; +MONT-40; -MONT10TA32; +PRD20T PO
[2021-11-23 12:55] VITALS: BP 138/90
[2021-11-23] MEDS ORDERED: KETOROLAC 30 MG/ML VIAL IM ONE (13:00)
[2021-11-23] MEDS ORDERED: PROCHLORPERAZINE 10 MG/2ML INJ (COMPAZINE) IM ONE (13:00)
[2021-11-23] MEDS ORDERED: ACETAMINOPHEN 500 MG TAB (TYLENOL) PO ONE (13:00)
[2021-11-23] MEDS ORDERED: diphenhydrAMINE 50 MG/ML INJ (BENADRYL) IM ONE (13:00)
--- NOTE | 2021-11-23 13:01 | ED Headache ---
General Chief Complaint: Head/Cervical Problems Stated Complaint: HEADACHE Source: patient Exam Limitations: no limitations History of Present Illness Date Seen by Provider: Nov 23, 2021 Time Seen by Provider: 12:48 Initial Comments 36-year-old female with past medical history of chronic migraines coming in due to what she says is a migraine headache. Said going on for 4 days, severe, was slow in onset, frontal part of her head, throbbing, ibuprofen helps it somewhat, but it does not fully go away. She has been to the ER multiple times over the years for this, she says this feels typical. Denies any fever, neck stiffness, vision changes, weakness, numbness, chest pain, shortness of breath, or any other concerns. LMP was a couple weeks ago. Allergies and Home Medications Allergies Coded Allergies: celecoxib (Verified Allergy, Unknown, 11/28/20) divalproex sodium (Verified Allergy, Unknown, 02/24/19) fluoxetine (Verified Allergy, Unknown, 02/24/19) gabapentin (Verified Allergy, Unknown, 02/24/19) pregabalin (Verified Allergy, Unknown, 11/28/20) quetiapine (Verified Allergy, Unknown, 02/24/19) Patient Home Medication List Home Medication List Reviewed: Yes Baclofen (Baclofen) 10 Mg Tablet, 10 MG PO TID PRN for MUSCLE SPASMS Prescribed by: JOE ACOSTA on 11/28/20 1626 Bupropion HCl (Bupropion HCl Sr) 100 Mg Tablet.er, (Reported) Entered as Reported by: WICHO CAMPUZANO on 12/14/19 1525 Butalb/Acetaminophen/Caffeine (Ffqhpg-Yzyvfsns-Rlsj 50-325-40) 1 Each Tablet, (Reported) Entered as Reported by: WICHO CAMPUZANO on 12/14/19 1525 Cyclobenzaprine HCl (Cyclobenzaprine HCl) 10 Mg Tablet, (Reported) Entered as Reported by: WICHO CAMPUZANO on 12/14/19 1525 Hydrocodone/Acetaminophen (Hydrocodone-Acetamin 5-325 mg) 1 Each Tablet, 1 TAB PO Q4H PRN for PAIN-SEVERE (8-10) Prescribed by: JOE ACOSTA on 11/28/20 1627 Ibuprofen (Ibuprofen) 800 Mg Tablet, (Reported) Entered as Reported by: WICHO CAMPUZANO on 12/14/19 1525 Montelukast Sodium (Montelukast Sodium) 10 Mg Tablet, (Reported) Entered as Reported by: WICHO CAMPUZANO on 12/14/19 1525 Prednisone (Prednisone) 20 Mg Tab, 40 MG PO DAILY Prescribed by: JOE ACOSTA on 11/28/20 1626 Prochlorperazine Maleate (Compazine) 10 Mg Tablet, 10 MG PO q 8 Prescribed by: ISMAEL LOMBARDI on 07/12/20 1847 Sumatriptan Succinate (Imitrex) 50 Mg Tab, 50 MG PO Q2H PRN for headache Prescribed by: YUDITH LEE on 06/16/19 1705 Thyroid,Pork ([place] Thyroid) 60 Mg Tablet, (Reported) Entered as Reported by: WICHO CAMPUZANO on 12/14/19 1525 Tramadol HCl (Tramadol HCl) 50 Mg Tablet, (Reported) Entered as Reported by: WICHO CAMPUZANO on 12/14/19 1525 Review of Systems Review of Systems Constitutional: No fever Eyes: Denies Blurred Vision Ears, Nose, Mouth, Throat: no symptoms reported Respiratory: no symptoms reported Cardiovascular: no symptoms reported Gastrointestinal: no symptoms reported Genitourinary: no symptoms reported Musculoskeletal: no symptoms reported Skin: no symptoms reported Psychiatric/Neurological: Headache All Other Systems Reviewed Negative Unless Noted: Yes Past Thxjnfe-Cbmscy-Ddmbfa Hx Patient Social History Tobacco Use?: Yes Tobacco type used: Cigarettes Substance use?: No Alcohol Use?: No Seasonal Allergies Seasonal Allergies: No Past Medical History Surgeries: Yes Section, Gallbladder Respiratory: No Cardiac: No Neurological: Yes 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 oz. 86.950571nv; 31.00 BMI Method:Stated General Appearance: WD/WN, no apparent distress HEENT: PERRL/EOMI, normal ENT inspection, pharynx normal Neck: non-tender, full range of motion, supple, normal inspection Cardiovascular: regular rate, rhythm, no edema, no murmur Respiratory: chest non-tender, lungs clear, normal breath sounds, no respiratory distress, no accessory muscle use Gastrointestinal: normal bowel sounds, non tender, soft; No distended, No gu arding, No rebound Back: normal inspection, no CVA tenderness, no vertebral tenderness Extremities: normal range of motion, non-tender, normal inspection, no pedal edema, no calf tenderness, normal capillary refill Psychiatric: alert, oriented x 3 Crainal Nerves: normal hearing, normal speech, PERRL Coordination/Gait: normal finger to nose, normal gait Motor/Sensory: no motor deficit, no sensory deficit Skin: normal color, warm/dry Lymphatic: no adenopathy Progress/Results/Core Measures Results/Orders My Orders Orders - NARCISO ANDINO MD Prochlorperazine Injection (Compazine In (11/23/21 13:00) Diphenhydramine Injection (Benadryl Inje (11/23/21 13:00) Acetaminophen Tablet (Tylenol Tablet) (11/23/21 13:00) Dexamethasone Oral Soln (Ed) (Decadron I (11/23/21 12:54) Ketorolac Injection (Toradol Injection) (11/23/21 13:00) Medications Given in ED Current Medications Medications Dose Ordered Sig/Arabella Route Start Time Stop Time Status Last Admin Dose Admin Acetaminophen 1,000 mg ONCE ONCE PO 11/23/21 13:00 11/23/21 13:01 DC 11/23/21 13:19 1,000 MG Diphenhydramine HCl 50 mg ONCE ONCE IM 11/23/21 13:00 11/23/21 13:01 DC 11/23/21 13:18 50 MG Ketorolac Tromethamine 15 mg ONCE ONCE IM 11/23/21 13:00 11/23/21 13:01 DC 11/23/21 13:18 15 MG Prochlorperazine Edisylate 10 mg ONCE ONCE IM 11/23/21 13:00 11/23/21 13:01 DC 11/23/21 13:18 10 MG Vital Signs/I&O 11/23/21 12:55 Temp 36.9 Pulse 79 Resp 16 B/P (MAP) 138/90 (106) Pulse Ox 98 O2 Delivery Room Air Progress Progress Note : Progress Note 36-year-old female with above history coming in due to headache. ABCs were intact and vitals were stable on presentation. Physical exam reassuring including a normal neurologic exam. She has no red flags for headache, and this is consistent with prior headaches over the many years. She gets a migraine similar to this about every month. She was given an IM injection of Compazine, Benadryl, Toradol, and oral Decadron as well as Tylenol. Patient then was stating she like to go home to try to sleep. I believe she was stable for discharge for outpatient follow-up. She was sent home with strict return precautions Departure Impression Primary Impression: Migraine Qualified Codes: G43.001 - Migraine without aura, not intractable, with status migrainosus Disposition: HOME, SELF-CARE Condition: Stable Departure-Patient Inst. Decision time for Depature: 13:31 Referrals: [facility] (PCP/Family) Primary Care Physician Patient Instructions: Migraines (DC) Add. Discharge Instructions: If you have not been referred to a neurologist yet in her life, I would wendy mmend referral to 1 by your primary doctor at [facility]. Try to stay as hydrated as possible. Work/School Note: Work Release Form Date Seen in the Emergency Department: Nov 23, 2021 Return to Work: Nov 24, 2021 Restrictions: No Restrictions NARCISO ANDINO MD Nov 23, 2021 13:01
== END 2021-11-23 13:54 | disposition home or self-care (01) ==
LOC: EDUNIT# 12:46 → ER FS 12:47
DX: G43.001 Migraine without aura, not intractable, with status migrainosus (principal); F17.210 Nicotine dependence, cigarettes, uncomplicated
CPT/HCPCS: 99284